=== PATIENT | female | born 1995 | race Asian ===

== ENCOUNTER 2024-04-20 05:45 | Inpatient (IN) | payer OTHER ==
[2024-04-20] MEDS ORDERED: METHYLERGONOVINE 0.2 MG/ML 1 ML AMP IM PRN (06:03)
[2024-04-20] MEDS ORDERED: OXYTOCIN 10 UNIT/ML 1 ML VIAL IM PRN (06:03)
[2024-04-20] MEDS ORDERED: TRANEXAMIC 1,000 MG/100ML-NACL 1,000 MG in EMPTY BAG 1 BAG IV PRN (06:03)
[2024-04-20] MEDS ORDERED: CARBOPROST TROMETHAMINE 250 MCG/ML 1 ML AMP IM PRN (06:03)
[2024-04-20] MEDS ORDERED: miSOPROStoL 200 MCG TAB PO PRN (06:03)
[2024-04-20] MEDS: LACTATED RINGERS 1,000 ML IV ONE (06:12)
[2024-04-20 06:26] LABS: Basophils # (A) 0.1 k/uL (0-0.2); Basophils % (A) 1 %; Eosinophils # (A) 0.1 k/uL (0-0.7); Eosinophils % (A) 1 %; HCT 42.5 % (34.0-46.0); HGB 13.6 gm/dL (11.4-16.0); Lymphocytes # (A) 1.8 k/uL (1.0-4.8); Lymphocytes % (A) 19 %; MCH 31.2 pg (25.0-35.0); MCHC 32.1 g/dL (31.0-37.0); MCV 97.5 fL (80.0-100.0); Mean Platelet Volume 7.8; Monocytes # (A) 0.6 k/uL (0-1.0); Monocytes % (A) 7 %; Neutrophils # (A) 6.9 k/uL (1.3-7.7); Neutrophils % (A) 71 %; Platelet Count 313 k/uL (150-450); RBC 4.36 m/uL (3.80-5.40); WBC 9.7 k/uL (3.8-10.6)
[2024-04-20] MEDS: CITRIC ACID-SODIUM CITRATE 15 ML CUP PO ONE (07:23)
[2024-04-20] MEDS: LACTATED RINGERS 1,000 ML IV SCH ×2 (07:25→10:52)
[2024-04-20] MEDS ORDERED: ONDANSETRON 4 MG/2 ML VIAL ONE (08:08)
[2024-04-20] MEDS ORDERED: NALBUPHINE (ANES) 10 MG/ML - 1 ML AMP ONE (08:08)
[2024-04-20] MEDS ORDERED: DEXAMETHASONE SOD PHOSPHATE 10 MG/ML 1 ML VIAL ONE (08:08)
[2024-04-20] MEDS ORDERED: MORPHINE SULFATE (PF) 0.3 MG/0.3 ML SYR ONE (08:08)
[2024-04-20] MEDS ORDERED: KETOROLAC 15 MG/ML 1 ML VIAL ONE (08:08)
--- NOTE | 2024-04-20 09:02 | P.HPOB ---
History of Present Illness H&P Date: 04/20/24 Chief Complaint: scheduled section Ms. Feliciano is a 29 year old at 39 weeks and 0 days gestation with EDC of 04/27/2024 who presents for elective primary section today. Her has been complicated by IUGR in the early third trimester that did re solve on subsequent growth US. The fetus is now estimated to be small for gestational age. The fetus was also noted to have a 4mm solitary liver calcification for which the patient had viral testing done, which was all negative. She also had a consultation with Judy. work-up: blood type O positive, antibody screen negative, rubella immune, VDRL non-reactive, HBsAg negative, HIV negative, HCV Ab non-reactive, gonorrhea negative, chlamydia negative, 1 hour GTT wnl, GBS negative. Past Medical History Past Medical History: No Reported History History of Any Multi-Drug Resistant Organisms: None Reported Past Surgical History: No Surgical Hx Reported Past Anesthesia/Blood Transfusion Reactions: No Reported Reaction Past Psychological History: No Psychological Hx Reported Smoking Status: Never smoker Past Alcohol Use History: None Reported Past Drug Use History: None Reported - Past Family History Mother Family Medical History: No Reported History Medications and Allergies Home Medications Medication Instructions Recorded Confirmed Type Vit No.180/Iron/Folic 1 each PO DAILY 04/20/24 04/20/24 History [ Plus Tablet] Allergies Allergy/AdvReac Type Severity Reaction Status Date / Time No Known Allergies Allergy Verified 04/20/24 06:03 Exam Vital Signs Temp Pulse Resp BP Pulse Ox 04/20/24 06:21 97.7 F 76 18 121/66 98 Intake and Output 04/19/24 04/20/24 04/20/24 22:59 06:59 14:59 Other: Weight 57.606 kg Focused physical exam is performed. This is a healthy-appearing in no apparent distress. Breathing is non-labored. Abdomen is gravid and non-tender. Extremities non-tender and non-edematous. heart tones are reactive and reassuring on NST. Results Result Diagrams: 04/20/24 06:08 Assessment and Plan Assessment: 29 year old at 39 weeks gestation presenting for elective primary section Plan: Admit, NPO, initiate protocol.
[2024-04-20] MEDS ORDERED: LANOLIN CREAM 1 GM TUBE TOPICAL PRN (09:07)
[2024-04-20] MEDS ORDERED: ZOLPIDEM 5 MG TAB PO PRN (09:07)
[2024-04-20] MEDS ORDERED: ONDANSETRON 4 MG/2 ML VIAL IVP PRN (09:07)
[2024-04-20] MEDS ORDERED: diphenhydrAMINE 50 MG CAP PO PRN (09:07)
[2024-04-20] MEDS ORDERED: SIMETHICONE 80 MG CHEWABLE PO PRN (09:07)
[2024-04-20] MEDS ORDERED: NALOXONE 0.4 MG/ML 1 ML VIAL IV PRN (09:07)
[2024-04-20] MEDS ORDERED: METOCLOPRAMIDE 5 MG/ML 2 ML VIAL IVP PRN (09:07)
[2024-04-20] MEDS ORDERED: diphenhydrAMINE 25 MG CAP PO PRN (09:07)
[2024-04-20] MEDS ORDERED: diphenhydrAMINE 50 MG/ML 1 ML VIAL IVP PRN ×2 (09:07)
--- NOTE | 2024-04-20 09:07 | P.OP ---
Date of Procedure: 04/20/24 Preoperative Diagnosis: 1. Term IUP at 39 weeks 2. Elective primary section Postoperative Diagnosis: Same Procedure(s) Performed: Primary Lower Transverse Section Implants: None Anesthesia: spinal Surgeon: Ritu Deleon Seat Coverer #1: Yocasta Garcia Estimated Blood Loss (ml): 200 IV fluids (ml): 700 Urine output (ml): 100 (clear yellow) Pathology: none sent Condition: stable Disposition: floor Indications for Procedure: Ms. Feliciano is a 29 year old at 39 weeks gestation presenting for elective primary section. The risks, benefits, and alternatives to section were discussed with the patient including risk of bleeding, infection, damage to surrounding structures including bladder/bowels/ureters, and post-operative VTE. The patient understands these risks and desires to proceed with section. Operative Findings: Clear amniotic fluid. Viable female infant in cephalic presentation. Three tight nuchal cords reduced. Normal uterus, bilateral fallopian tubes, and ovaries. Description of Procedure: The patient was taken back to the operating room where spinal anesthesia was found to be adequate. Two grams of Ancef were given for infection prophylaxis. She was prepared and draped in the dorsal supine position with a leftward tilt. A Pfannenstiel skin incision was made with the scalpel. The incision was carried down to the fascia with a bovie. The fascia was incised and extended laterally with Dent scissors. The superior aspect of the fascia was grasped with the Jonnie clamps. The underlying rectus muscle was dissected off sharply with Dent scissors. In a similar fashion, the inferior aspect of the fascia was elevated with Jonnie clamps and the rectus muscle and pyramidalis were dissected off. Excellent hemostasis was achieved with the bovie. The rectus muscle was in the midline down to the level of the pubic symphysis. Pre- peritoneal fatty tissue was bluntly dissected to expose the peritoneum. The peritoneum was found to be free of adherent bowel and entered sharply with Dent scissors. The peritoneal incision was extended superiorly and inferiorly to the bladder reflection with good visualization of the bladder. The bladder blade was inserted and vesicouterine peritoneum was identified. Intraabdominal survey revealed scant, clear peritoneal fluid and the thinned-out lower uterine segment. The vesicouterine peritoneum was opened with scissors and the bladder flap was developed. The bladder blade was repositioned to keep the bladder out of the operative field. The lower uterine segment was incised with a scalpel. The amniotic sac was ruptured with an Allis clamp and clear fluid was noted. The uterine incision was extended bluntly with lateral and upward traction. The fetus was in cephalic presentation. Three tight nuchal cords were reduced. The head was elevated out of the pelvis with special attention paid to avoid using the uterine incision as a fulcrum. Gentle fundal pressure was applied once the head was brought into the incision. The was delivered with no difficulty and was noted to be crying spontaneously. The mouth and nose were suctioned with a bulb. The cord was clamped and cut. The was handed off to the director phone. IV oxytocin was initiated to facilitate uterine contractions. The placenta was delivered intact with manual massage of uterine fundus. The uterus was then exteriorized and the inside of the uterus was gently wiped with a lap sponge to assure complete removal of placental membranes. The uterine incision was closed with 0-Vicryl suture in a running locked fashion. A second imbricating layer was placed with 0-Vicryl. The ovaries and tubes were found to be normal. The uterus, tubes, and ovaries were then gently returned to the abdominal cavity. The abdomen was copiously suction irrigated. The uterine incision was reinspected and excellent hemostasis was noted. The fascial layer was closed with a 0-Vicryl suture. The subcutaneous tissue was reapproximated with 2-0 Plain Gut. The skin was closed with 4-0 Monocryl in a subcuticular fashion.The patient tolerated the procedure well. All the counts were correct times two. The patient was taken to the recovery room in a stable condition. A physician manager assisted living was utilized for the entire procedure due to the n eed for tissue retraction, dissection of vital structures, prevention and management of blood loss, and reduction in overall operative and anesthesia time as is the standard of care.
[2024-04-20] MEDS: ACETAMINOPHEN TAB 500 MG TAB PO SCH (12:17)
[2024-04-20] MEDS: KETOROLAC 15 MG/ML 1 ML VIAL IVP SCH (16:26)
[2024-04-20] MEDS: SENNOSIDES-DOCUSATE SODIUM 1 EACH TAB PO SCH (20:09)
[2024-04-21 07:09] LABS: Basophils % (A) 0 %; Eosinophils # (A) 0.1 k/uL (0-0.7); Eosinophils % (A) 1 %; HCT 38.8 % (34.0-46.0); HGB 12.3 gm/dL (11.4-16.0); Lymphocytes # (A) 2.5 k/uL (1.0-4.8); Lymphocytes % (A) 14 %; MCH 31.2 pg (25.0-35.0); MCHC 31.8 g/dL (31.0-37.0); MCV 98.1 fL (80.0-100.0); Mean Platelet Volume 7.7; Monocytes # (A) 0.7 k/uL (0-1.0); Monocytes % (A) 4 %; Neutrophils # (A) 13.7 k/uL (1.3-7.7); Neutrophils % (A) 79 %; Platelet Count 250 k/uL (150-450); RBC 3.95 m/uL (3.80-5.40); RDW 12.3 % (11.5-15.5); WBC 17.3 k/uL (3.8-10.6)
--- NOTE | 2024-04-21 09:53 | P.PNOBGPC ---
Subjective - Subjective Principal diagnosis: Postop day 1, primary Interval history: Patient is doing well postoperatively. She is ambulating and voiding without difficulty. She is tolerating a regular diet without nausea or vomiting. She states her pain is well-controlled. She denies concerns. Patient reports: Reports appetite normal, Reports voiding normally, Reports pain well controlled, Reports ambulating normally : doing well Objective - Vital Signs Latest vital signs: Vital Signs Temp Pulse Resp BP Pulse Ox 04/21/24 08:00 97.4 F L 82 16 104/57 99 04/21/24 00:00 98.2 F 80 16 112/69 98 04/20/24 16:00 98.4 F 73 16 100/61 97 04/20/24 10:38 98.6 F 67 16 102/58 100 04/20/24 10:23 71 16 103/55 100 04/20/24 10:08 66 14 114/61 99 04/20/24 09:53 65 14 106/63 99 Intake and Output 04/20/24 04/21/24 04/21/24 22:59 06:59 14:59 Output Total 783 585 2091 Balance -300 -900 -1550 Output: Urine 140 597 9281 Uretheral (Serrano) 300 900 - Exam Extremities: Present: normal, edema Abdomen: Present: normal appearance, soft Incision: Present: normal, dry, intact Uterus: Present: normal, firm - Labs Labs: Abnormal Lab Results - Last 24 Hours (Table) 04/21/24 Range/Units 06:37 WBC 17.3 H (3.8-10.6) k/uL Neutrophils # 13.7 H (1.3-7.7) k/uL Assessment and Plan (1) Term Current Visit: Yes Status: Acute Code(s): Z34.90 - ENCNTR FOR SUPRVSN OF NORMAL , UNSP, UNSP TRIMESTER SNOMED Code(s): 73584183 (2) Status post section Current Visit: Yes Status: Acute Code(s): Z98.891 - HISTORY OF UTERINE SCAR FROM PREVIOUS SURGERY SNOMED Code(s): 116367702 Plan: Patient is doing well postoperatively. Continue routine postoperative care. Anticipate discharge home tomorrow.
--- NOTE | 2024-04-21 10:18 | P.PN ---
Progress Note - Text Progress Note Date: 04/21/24 Postoperative day 1 status post section under spinal anesthesia, and intrathecal morphine given for postoperative analgesia, patient doing well, there is no anesthesia related complications, Patient had no headache, vital signs stable , Assessment and plan= postop day 1 status post , doing well there is no anesthesia related complication.
[2024-04-21] MEDS: IBUPROFEN 800 MG TAB PO SCH (17:25)
[2024-04-22 08:16] VITALS: BP 112/68; PULSE 88; RESP 16; TEMP 98
--- NOTE | 2024-04-22 10:25 | P.DS ---
Providers Date of admission: 04/20/24 05:45 Expected date of discharge: 04/22/24 Attending physician: Ritu Deleon MD Primary care physician: Stated None - Discharge Diagnosis(es) (1) Term Current Visit: Yes Status: Acute (2) Status post section Current Visit: Yes Status: Acute Hospital Course: This is a 29-year-old 1 now para 1 that presented to labor and delivery on 04/20 for elective primary . Patient had been receiving routine care which had been essentially uncomplicated. Some growth restriction issues were noted during and resolved in the third trimester. For full details in this patient please see the dictated history and physical. Patient underwent primary low-transverse without complication. Patient delivered a viable female weight of 5 pounds 8 ounces, Apgars of 9 and 9 at 1 and 5 minutes respectively. For full details on the please see the dictated operative report. Patient's postoperative course has been uneventful. In this postoperative day #2 she is ambulating and voiding without difficulty. She is tolerating a regular diet without nausea or vomiting. She states her pain is well-controlled. She is anxious to be discharged. Patient Condition at Discharge: Good Plan - Discharge Summary New Discharge Prescriptions: No Action Vit No.180/Iron/Folic [ Plus Tablet] 1 each PO DAILY Discharge Medication List Vit No.180/Iron/Folic [ Plus Tablet] 1 each PO DAILY 04/20/24 [History] Follow up Appointment(s)/Referral(s): Ritu Deleon MD [STAFF PHYSICIAN] - 05/01/24 10:45 am (Post Appointment 05-28-2024 at 10:45 am) Patient Instructions/Handouts: (DC), (GEN) Activity/Diet/Wound Care/Special Instructions: No tub baths or intercourse until 6 weeks . Yhbv-asl-xicqxfu ibuprofen 600 mg or 3 tablets to 6 hours as needed for pain. Patient is to be seen in the office for routine postoperative visit in 2 weeks. Discharge Disposition: HOME SELF-CARE
== END 2024-04-22 11:44 | disposition home or self-care (01) | DRG 788 ==
LOC: 4FBP 05:45
PROVIDERS: ADMIT Obstetrics & Gynecology; ATTEND Obstetrics & Gynecology
PROC: 10D00Z1 Extraction of Products of Conception, Low, Open Approach (ICD-10-PCS; principal; 2024-04-20 08:00)
DX: O36.5930 Maternal care for other known or suspected poor fetal growth, third trimester, not applicable or unspecified (principal); O69.1XX0 Labor and delivery complicated by cord around neck, with compression, not applicable or unspecified; Z37.0 Single live birth; Z3A.39 39 weeks gestation of pregnancy
CPT/HCPCS: 85025; 86850; 86900; 86901